=== PATIENT | female | born 1980 | race Caucasian/White ===

== ENCOUNTER 2017-11-30 16:45 | Emergency (ER) | payer MEDICAID ==
[2017-11-30] MEDS: DEXAMETHASONE 10 MG/ML 1 ML INJ PO (19:54)
[2017-11-30] MEDS: IPRATROPIUM (NEB) 0.5 MG/2.5 ML AMP HHN (20:02)
[2017-11-30] MEDS: ALBUTEROL 0.083% (NEB) 2.5 MG/3 ML AMP HHN (20:02)
== END 2017-11-30 21:24 | disposition home or self-care (01) ==
LOC: FTE 16:45
DX: J45.901 Unspecified asthma with (acute) exacerbation (principal)
CPT/HCPCS: 94664; 99284-25